=== PATIENT | female | born 1970 | race Caucasian/White ===

== ENCOUNTER → 2016-12-11 | Outpatient (CLI) | payer BC ==
[~2016-12-11] MED LIST: CIPR500T87 PO; DICY10CA3 PO; FLUO20CA19 PO; HYDR1TAB12 PO; OMEP40CA6 PO; OXYC-302 PO
== END | disposition home or self-care (01) ==
LOC: PETCFH 08:30
PROVIDERS: ATTEND Internal Medicine Gastroenterology
DX: K57.30 Diverticulosis of large intestine without perforation or abscess without bleeding (principal); K58.9 Irritable bowel syndrome, unspecified
CPT/HCPCS: 78264; A9541

== ENCOUNTER 2019-02-26 12:46 | Emergency (ER) | payer BC, OTHER ==
[~2019-02-26] VITALS: Ht 162.6 cm; Wt 94.0 kg
[~2019-02-26 12:46] MED LIST changes: -HYDR1TAB12 PO; +HYDR1TAB13 PO; +OMEP40CA42 PO; -OMEP40CA6 PO
[2019-02-26] MEDS ORDERED: SODIUM CHLORIDE FLUSH 10ML SYR IVF ONE (13:30)
[2019-02-26] MEDS ORDERED: ONDANSETRON 2MG/ML, 2ML IVPush ONE (13:30)
[2019-02-26 13:37] LABS: MICROSCOPIC AUTO
[2019-02-26] MEDS ORDERED: MORPHINE SULFATE 4 MG/ML, 1ML ONE ×2 (13:37→14:22)
[2019-02-26] MEDS ORDERED: ONDANSETRON 2MG/ML, 2ML ONE (13:37)
[2019-02-26 13:39] LABS: CULTURE INDICATED? NO
[2019-02-26] MEDS: MORPHINE SULFATE 4 MG/ML, 1ML IVPush PRN ×2 (13:40→14:27)
--- NOTE | 2019-02-26 13:45 | NUR ---
PT CO OF RIGHT FLANK PAIN AND ABD PAIN. HAS HX OF KIDNEY STONES, HISTOY OF KIDNEY DISEASE, AND IBS. PATIENT IS IN HOSPITAL BED. BEDSIDE. MORPHINE HAS BEEN ADM. REPORTS PAIN IMPROVEMENT
[2019-02-26 13:52] LABS: BASOPHILS % (AUTO) 0 % (0-1); EOSINOPHILS # (AUTO) 0.21 x10^3/uL (0-0.4); EOSINOPHILS % (AUTO) 2 % (1-7); LYMPHOCYTES # (AUTO) 0.49 x10^3/uL (1-3.4); LYMPHOCYTES % (AUTO) 4 % (22-44); MD NO; MEAN CORPUSCULAR HEMOGLOBIN 29.4 pg (27.0-34.8); MEAN CORPUSCULAR VOLUME 88.8 fL (80-100); MEAN PLATELET VOLUME 7.4 fL (7.4-10.4); MONOCYTES # (AUTO) 0.11 x10^3/uL (0.2-0.8); MONOCYTES % (AUTO) 1 % (2-9); NEUTROPHILS # (AUTO) 11.46 x10^3/uL (1.8-6.8); NEUTROPHILS % (AUTO) 94 % (42-75); PLATELET COUNT 262 x10^3/uL (130-400); RED BLOOD COUNT 5.09 x10^6/uL (3.82-5.3); RED CELL DISTRIBUTION WIDTH 12.9 % (9.6-15.2)
[2019-02-26 14:01] LABS: ALBUMIN 3.8 g/dL (3.4-5.0); ANION GAP 8 mmol/L (5-15); CALCIUM 8.6 mg/dL (8.5-10.1); CHLORIDE 108 mmol/L (98-107)
[2019-02-26 14:04] LABS: ALANINE AMINOTRANSFERASE 28 U/L (12-78); ALKALINE PHOSPHATASE 72 U/L (45-117); BILIRUBIN,TOTAL 0.6 mg/dL (0.2-1.0); CREATININE 0.69 mg/dL (0.55-1.02)
[2019-02-26] MEDS ORDERED: KETOROLAC 30 MG/1 ML ONE (14:48)
[2019-02-26 14:56] VITALS: BP 135/72
--- NOTE | 2019-02-26 14:58 | NUR ---
PT REPORTS PAIN IMPROVEMENT. O2 SAT FELL BELOW 90%. I PUT HER ONE 1 LITER OF O2 VIA NASAL CANULA A PRECAUTION. IS BEDSIDE.
[2019-02-26] MEDS ORDERED: KETOROLAC 30 MG/1 ML IVPush ONE (15:00)
== END 2019-02-26 16:03 | disposition home or self-care (01) ==
LOC: ED 15:16
DX: N20.1 Calculus of ureter (principal); R31.9 Hematuria, unspecified
CPT/HCPCS: 36415; 74176; 80053; 81001; 83690; 85025; 96374; 96375; 96376; 99284; J1885; J2270; J2405